=== PATIENT | male | born 1965 | race African-American/Black ===

== ENCOUNTER 2017-10-01 02:26 | Emergency (ER) | payer MEDICAID ==
[~2017-10-01] VITALS: Ht 180.3 cm; Wt 93.0 kg
[~2017-10-01 02:26] MED LIST: DEPAKOTE; LITHIUM; RESPIRADOL
[2017-10-01 05:30] VITALS: BP 134/95
== END 2017-10-01 05:50 | disposition left against medical advice (07) ==
LOC: ER 02:26
DX: R50.9 Fever, unspecified (principal); Z53.21 Procedure and treatment not carried out due to patient leaving prior to being seen by health care provider

== ENCOUNTER 2017-10-02 22:09 | Emergency (ER) | payer MEDICAID ==
[~2017-10-02] VITALS: Ht 180.3 cm; Wt 93.0 kg
[2017-10-02 23:04] VITALS: BP 142/83
== END 2017-10-03 04:45 | disposition left against medical advice (07) ==
LOC: ER 22:09
DX: R50.9 Fever, unspecified (principal); Z53.21 Procedure and treatment not carried out due to patient leaving prior to being seen by health care provider

== ENCOUNTER 2017-11-04 14:34 | Emergency (ER) | payer MEDICAID | END 2017-11-04 15:42 | disposition left against medical advice (07) | LOC: ER 15:10 | DX: M79.89 Other specified soft tissue disorders (principal); Z53.21 Procedure and treatment not carried out due to patient leaving prior to being seen by health care provider ==

== ENCOUNTER 2017-11-07 20:56 | Emergency (ER) | payer MEDICAID ==
[~2017-11-07] VITALS: Ht 177.8 cm; Wt 107.0 kg
[2017-11-07 21:28] VITALS: BP 118/81
== END 2017-11-08 01:00 | disposition left against medical advice (07) ==
LOC: ER 20:56
DX: R50.9 Fever, unspecified (principal); Z53.21 Procedure and treatment not carried out due to patient leaving prior to being seen by health care provider

== ENCOUNTER 2017-11-15 01:58 | Emergency (ER) | payer MEDICAID ==
[~2017-11-15] VITALS: Ht 177.8 cm; Wt 93.0 kg
[2017-11-15 02:20] VITALS: BP 126/82
== END 2017-11-15 08:06 | disposition left against medical advice (07) ==
LOC: ER 01:58
DX: Z53.21 Procedure and treatment not carried out due to patient leaving prior to being seen by health care provider (principal); F17.200 Nicotine dependence, unspecified, uncomplicated; F12.10 Cannabis abuse, uncomplicated

== ENCOUNTER 2018-05-27 02:08 | Emergency (ER) | payer MEDICAID ==
[~2018-05-27] VITALS: Ht 177.8 cm; Wt 93.0 kg
[2018-05-27 02:33] VITALS: BP 121/80
== END 2018-05-27 06:08 | disposition left against medical advice (07) ==
LOC: ER 02:08
DX: Z53.21 Procedure and treatment not carried out due to patient leaving prior to being seen by health care provider (principal)

== ENCOUNTER 2018-05-31 06:01 | Emergency (ER) | payer MEDICAID ==
[~2018-05-31] VITALS: Ht 180.3 cm; Wt 95.0 kg
[2018-05-31 08:37] VITALS: BP 121/83
== END 2018-05-31 08:37 | disposition home or self-care (01) ==
LOC: ER 06:01
DX: J06.9 Acute upper respiratory infection, unspecified (principal); B86 Scabies; F20.9 Schizophrenia, unspecified; F43.10 Post-traumatic stress disorder, unspecified; F12.10 Cannabis abuse, uncomplicated; F17.200 Nicotine dependence, unspecified, uncomplicated; Z96.659 Presence of unspecified artificial knee joint
CPT/HCPCS: 71045; 99283

== ENCOUNTER 2018-06-08 01:23 | Emergency (ER) | payer MEDICAID ==
[~2018-06-08] VITALS: Ht 177.8 cm; Wt 97.0 kg
[2018-06-08 01:37] VITALS: BP 121/77
== END 2018-06-08 03:21 | disposition left against medical advice (07) ==
LOC: ER 03:21
DX: R21 Rash and other nonspecific skin eruption (principal); R50.9 Fever, unspecified; Z53.21 Procedure and treatment not carried out due to patient leaving prior to being seen by health care provider

== ENCOUNTER 2018-06-10 01:18 | Emergency (ER) | payer MEDICAID ==
[~2018-06-10] VITALS: Ht 177.8 cm; Wt 98.0 kg
[2018-06-10 05:13] VITALS: BP 128/77
== END 2018-06-10 05:16 | disposition home or self-care (01) ==
LOC: ER 02:36
DX: R21 Rash and other nonspecific skin eruption (principal); F12.10 Cannabis abuse, uncomplicated; F17.200 Nicotine dependence, unspecified, uncomplicated; Z59.0 Homelessness; Z98.890 Other specified postprocedural states
CPT/HCPCS: 99282

== ENCOUNTER 2018-06-17 01:36 | Emergency (ER) | payer MEDICAID ==
[~2018-06-17] VITALS: Ht 177.8 cm; Wt 98.0 kg
[2018-06-17 02:08] VITALS: BP 117/75
== END 2018-06-17 04:40 | disposition left against medical advice (07) ==
LOC: ER 01:36
DX: Z53.21 Procedure and treatment not carried out due to patient leaving prior to being seen by health care provider (principal)

== ENCOUNTER 2018-06-20 22:51 | Emergency (ER) | payer MEDICAID | END 2018-06-21 02:21 | disposition left against medical advice (07) | LOC: ER 22:51 | DX: Z53.21 Procedure and treatment not carried out due to patient leaving prior to being seen by health care provider (principal) ==

== ENCOUNTER 2018-06-22 13:07 | Emergency (ER) | payer MEDICAID | END 2018-06-22 14:31 | disposition left against medical advice (07) | LOC: ER 13:07 | DX: R68.89 Other general symptoms and signs (principal); Z53.21 Procedure and treatment not carried out due to patient leaving prior to being seen by health care provider ==

== ENCOUNTER 2018-07-10 09:22 | Emergency (ER) | payer MEDICAID ==
[~2018-07-10] VITALS: Ht 177.8 cm; Wt 93.0 kg
[2018-07-10 11:51] LABS: BASOPHILS % 0.5 % (0.0-2.0); EOSINOPHILS % 1.2 % (0.0-5.0); HEMOGLOBIN. 12.9 g/dL (14.0-18.0); LYMPHOCYTES % 18.5 % (20.0-50.0); MEAN CORPUSCULAR HEMOGLOBIN 25.8 pg (28.0-32.0); MEAN CORPUSCULAR VOLUME 79.9 fL (80.0-94.0); MEAN PLATELET VOLUME 7.8 fl (7.4-10.4); MONOCYTES % 8.6 % (2.0-8.0); NEUTROPHILS % 71.2 % (40.0-76.0); PLATELET 335 x1000/uL (130-400); RED BLOOD CELL COUNT 5.01 mill/uL (4.7-6.1); RED CELL DISTRIBUTION WIDTH 16.4 % (11.6-14.6)
[2018-07-10 11:55] LABS: CHLORIDE 103 mEq/L (98-107)
[2018-07-10 13:00] VITALS: BP 110/70
== END 2018-07-10 13:29 | disposition home or self-care (01) ==
LOC: ER 09:22
DX: R60.0 Localized edema (principal)
CPT/HCPCS: 36415; 71045; 80053; 83880; 84484; 85025; 93005; 93970; 99285; Z7610

== ENCOUNTER 2018-07-15 20:11 | Emergency (ER) | payer MEDICAID ==
[~2018-07-15] VITALS: Ht 177.8 cm; Wt 98.0 kg
[2018-07-15 20:22] VITALS: BP 113/70
== END 2018-07-16 00:38 | disposition left against medical advice (07) ==
LOC: ER 22:07
DX: Z53.21 Procedure and treatment not carried out due to patient leaving prior to being seen by health care provider (principal)

== ENCOUNTER 2018-07-18 16:18 | Emergency (ER) | payer MEDICAID | END 2018-07-18 17:12 | disposition left against medical advice (07) | LOC: ER 16:54 | DX: R50.9 Fever, unspecified (principal); Z53.21 Procedure and treatment not carried out due to patient leaving prior to being seen by health care provider ==

== ENCOUNTER 2018-07-20 19:57 | Emergency (ER) | payer MEDICAID ==
[~2018-07-20] VITALS: Ht 177.8 cm; Wt 98.0 kg
[2018-07-20 20:02] VITALS: BP 126/65
== END 2018-07-20 22:05 | disposition left against medical advice (07) ==
LOC: ER 21:50
DX: M79.89 Other specified soft tissue disorders (principal); B38.0 Acute pulmonary coccidioidomycosis; Z53.21 Procedure and treatment not carried out due to patient leaving prior to being seen by health care provider

== ENCOUNTER 2018-10-02 01:54 | Emergency (ER) | payer MEDICAID ==
[~2018-10-02] VITALS: Ht 177.8 cm; Wt 91.0 kg
[2018-10-02] MEDS ORDERED: SODIUM CHLORIDE 0.9% 1,000 ML IV ONE (03:06)
[2018-10-02 03:36] LABS: BASOPHILS % 0.5 % (0.0-2.0); EOSINOPHILS % 2.6 % (0.0-5.0); HEMATOCRIT. 38.4 % (42.0-52.0); HEMOGLOBIN. 12.3 g/dL (14.0-18.0); LYMPHOCYTES % 20.6 % (20.0-50.0); MEAN CORPUSCULAR HEMOGLOBIN 25.7 pg (28.0-32.0); MEAN CORPUSCULAR VOLUME 79.9 fL (80.0-94.0); MEAN PLATELET VOLUME 8.8 fl (7.4-10.4); MONOCYTES % 10.7 % (2.0-8.0); NEUTROPHILS % 65.6 % (40.0-76.0); PLATELET 251 x1000/uL (130-400)
[2018-10-02 03:40] LABS: CHLORIDE 103 mEq/L (98-107)
[2018-10-02] MEDS ORDERED: POTASSIUM CHLORIDE 20MEQ TABLET SR PO ONE (05:30)
[2018-10-02 06:17] VITALS: BP 110/50
[2018-10-02] MEDS: POTASSIUM CHLORIDE 20MEQ TABLET SR PO NR ×2 (06:17→06:25)
== END 2018-10-02 06:27 | disposition home or self-care (01) ==
LOC: ER 01:54
DX: R21 Rash and other nonspecific skin eruption (principal); M79.89 Other specified soft tissue disorders; R03.0 Elevated blood-pressure reading, without diagnosis of hypertension
CPT/HCPCS: 36415; 71045; 80053; 85025; 93005; 93970; 99284; J7030

== ENCOUNTER 2018-11-24 00:14 | Emergency (ER) | payer MEDICAID, OTHER ==
[~2018-11-24] VITALS: Ht 177.8 cm; Wt 93.0 kg
[2018-11-24 00:26] VITALS: BP 137/78
== END 2018-11-24 03:30 | disposition left against medical advice (07) ==
LOC: ER 00:14
DX: Z53.21 Procedure and treatment not carried out due to patient leaving prior to being seen by health care provider (principal)

== ENCOUNTER 2018-11-26 00:01 | Emergency (ER) | payer OTHER | END 2018-11-26 01:39 | disposition left against medical advice (07) | LOC: ER 00:01 | DX: R21 Rash and other nonspecific skin eruption (principal); Z53.21 Procedure and treatment not carried out due to patient leaving prior to being seen by health care provider ==

== ENCOUNTER 2018-11-26 21:31 | Emergency (ER) | payer OTHER ==
[~2018-11-26] VITALS: Ht 177.8 cm; Wt 93.0 kg
[2018-11-26 22:24] VITALS: BP 109/66
== END 2018-11-27 01:00 | disposition left against medical advice (07) ==
LOC: ER 21:31
DX: Z53.21 Procedure and treatment not carried out due to patient leaving prior to being seen by health care provider (principal)

== ENCOUNTER 2018-11-28 02:23 | Emergency (ER) | payer OTHER ==
[~2018-11-28] VITALS: Ht 177.8 cm; Wt 91.0 kg
[2018-11-28 02:44] VITALS: BP 112/73
== END 2018-11-28 08:02 | disposition left against medical advice (07) ==
LOC: ER 02:23
DX: R10.9 Unspecified abdominal pain (principal); Z53.21 Procedure and treatment not carried out due to patient leaving prior to being seen by health care provider

== ENCOUNTER 2018-11-28 14:27 | Emergency (ER) | payer OTHER ==
[~2018-11-28] VITALS: Ht 177.8 cm; Wt 91.0 kg
[2018-11-28 14:48] VITALS: BP 102/65
== END 2018-11-28 22:30 | disposition left against medical advice (07) ==
LOC: ER 14:27
DX: R50.9 Fever, unspecified (principal); R21 Rash and other nonspecific skin eruption; Z53.21 Procedure and treatment not carried out due to patient leaving prior to being seen by health care provider

== ENCOUNTER 2018-11-29 01:00 | Emergency (ER) | payer OTHER ==
[~2018-11-29] VITALS: Ht 177.8 cm; Wt 93.0 kg
[2018-11-29 01:09] VITALS: BP 122/78
== END 2018-11-29 08:28 | disposition left against medical advice (07) ==
LOC: ER 01:00
DX: R21 Rash and other nonspecific skin eruption (principal); Z53.21 Procedure and treatment not carried out due to patient leaving prior to being seen by health care provider

== ENCOUNTER 2018-11-29 20:38 | Emergency (ER) | payer OTHER ==
[~2018-11-29] VITALS: Ht 167.6 cm; Wt 92.0 kg
[2018-11-29 21:23] VITALS: BP 115/76
== END 2018-11-30 02:19 | disposition home or self-care (01) ==
LOC: ER 20:38
DX: M79.605 Pain in left leg (principal); M79.604 Pain in right leg; F12.10 Cannabis abuse, uncomplicated; F14.10 Cocaine abuse, uncomplicated; F17.200 Nicotine dependence, unspecified, uncomplicated
CPT/HCPCS: 99283

== ENCOUNTER 2018-11-30 21:25 | Emergency (ER) | payer MEDICAID, OTHER | END 2018-11-30 23:36 | disposition left against medical advice (07) | LOC: ER 21:25 | DX: B38.0 Acute pulmonary coccidioidomycosis (principal); Z53.21 Procedure and treatment not carried out due to patient leaving prior to being seen by health care provider ==

== ENCOUNTER 2018-12-03 00:54 | Emergency (ER) | payer MEDICAID ==
[~2018-12-03] VITALS: Ht 167.6 cm; Wt 92.0 kg
[2018-12-03 03:32] VITALS: BP 118/67
== END 2018-12-03 05:03 | disposition left against medical advice (07) ==
LOC: ER 00:54
DX: R21 Rash and other nonspecific skin eruption (principal); Z53.21 Procedure and treatment not carried out due to patient leaving prior to being seen by health care provider

== ENCOUNTER 2018-12-03 20:17 | Emergency (ER) | payer MEDICAID, OTHER ==
[~2018-12-03] VITALS: Ht 167.6 cm; Wt 92.0 kg
[2018-12-03 20:57] VITALS: BP 127/59
== END 2018-12-04 00:09 | disposition left against medical advice (07) ==
LOC: ER 20:17
DX: Z53.21 Procedure and treatment not carried out due to patient leaving prior to being seen by health care provider (principal)

== ENCOUNTER 2018-12-04 22:24 | Emergency (ER) | payer OTHER | END 2018-12-05 00:17 | disposition left against medical advice (07) | LOC: ER 22:24 | DX: R50.9 Fever, unspecified (principal); Z53.21 Procedure and treatment not carried out due to patient leaving prior to being seen by health care provider ==

== ENCOUNTER 2018-12-05 22:53 | Emergency (ER) | payer OTHER ==
[~2018-12-05] VITALS: Ht 177.8 cm; Wt 90.0 kg
[2018-12-06 00:06] VITALS: BP 122/79
== END 2018-12-06 05:00 | disposition left against medical advice (07) ==
LOC: ER 22:53
DX: Z53.21 Procedure and treatment not carried out due to patient leaving prior to being seen by health care provider (principal)

== ENCOUNTER 2018-12-06 22:15 | Emergency (ER) | payer OTHER ==
[~2018-12-06] VITALS: Ht 177.8 cm; Wt 100.0 kg
[2018-12-06 22:39] VITALS: BP 131/62
== END 2018-12-07 00:05 | disposition left against medical advice (07) ==
LOC: ER 22:15
DX: R21 Rash and other nonspecific skin eruption (principal); Z53.21 Procedure and treatment not carried out due to patient leaving prior to being seen by health care provider

== ENCOUNTER 2018-12-08 02:25 | Emergency (ER) | payer OTHER ==
[~2018-12-08] VITALS: Ht 177.8 cm; Wt 98.0 kg
[2018-12-08 05:29] VITALS: BP 132/88
== END 2018-12-08 06:29 | disposition left against medical advice (07) ==
LOC: ER 02:25
DX: Z53.21 Procedure and treatment not carried out due to patient leaving prior to being seen by health care provider (principal)

== ENCOUNTER 2018-12-08 19:40 | Emergency (ER) | payer OTHER ==
[2018-12-08 21:56] VITALS: BP 188/98
== END 2018-12-08 22:01 | disposition left against medical advice (07) ==
LOC: ER 19:40
DX: Z53.21 Procedure and treatment not carried out due to patient leaving prior to being seen by health care provider (principal)

== ENCOUNTER 2018-12-10 21:41 | Emergency (ER) | payer MEDICAID, OTHER ==
[~2018-12-10] VITALS: Ht 180.3 cm; Wt 93.0 kg
[2018-12-11 01:01] VITALS: BP 152/85
== END 2018-12-11 02:40 | disposition left against medical advice (07) ==
LOC: ER 22:11
DX: Z53.21 Procedure and treatment not carried out due to patient leaving prior to being seen by health care provider (principal)
CPT/HCPCS: 93005; 99281

== ENCOUNTER 2018-12-11 21:08 | Emergency (ER) | payer MEDICAID ==
[~2018-12-11] VITALS: Ht 177.8 cm; Wt 82.0 kg
[2018-12-11 21:15] VITALS: BP 115/59
== END 2018-12-11 22:20 | disposition left against medical advice (07) ==
LOC: ER 21:08
DX: Z53.21 Procedure and treatment not carried out due to patient leaving prior to being seen by health care provider (principal)

== ENCOUNTER 2018-12-12 01:44 | Emergency (ER) | payer MEDICAID, OTHER ==
[~2018-12-12] VITALS: Ht 180.3 cm; Wt 78.0 kg
[2018-12-12 06:00] VITALS: BP 140/78
== END 2018-12-12 08:20 | disposition left against medical advice (07) ==
LOC: ER 03:31
DX: R50.9 Fever, unspecified (principal); Z53.21 Procedure and treatment not carried out due to patient leaving prior to being seen by health care provider

== ENCOUNTER 2018-12-14 05:38 | Emergency (ER) | payer OTHER ==
[~2018-12-14] VITALS: Ht 180.3 cm; Wt 93.0 kg
[2018-12-14 05:51] VITALS: BP 105/72
== END 2018-12-14 08:38 | disposition left against medical advice (07) ==
LOC: ER 05:38
DX: R21 Rash and other nonspecific skin eruption (principal); Z53.21 Procedure and treatment not carried out due to patient leaving prior to being seen by health care provider

== ENCOUNTER 2018-12-18 19:49 | Emergency (ER) | payer OTHER ==
[~2018-12-18] VITALS: Ht 177.8 cm; Wt 88.0 kg
[2018-12-18 22:42] VITALS: BP 121/84
== END 2018-12-19 00:28 | disposition home or self-care (01) ==
LOC: ER 19:49
DX: R21 Rash and other nonspecific skin eruption (principal); F17.200 Nicotine dependence, unspecified, uncomplicated; F12.10 Cannabis abuse, uncomplicated; Z98.890 Other specified postprocedural states
CPT/HCPCS: 99281

== ENCOUNTER 2018-12-20 01:24 | Emergency (ER) | payer OTHER ==
[~2018-12-20] VITALS: Ht 177.8 cm; Wt 87.0 kg
[2018-12-20 01:26] VITALS: BP 129/82
== END 2018-12-20 04:12 | disposition left against medical advice (07) ==
LOC: ER 01:24
DX: R21 Rash and other nonspecific skin eruption (principal); Z53.21 Procedure and treatment not carried out due to patient leaving prior to being seen by health care provider

== ENCOUNTER 2021-07-22 00:17 | Emergency (ER) | payer OTHER ==
[~2021-07-22] VITALS: Ht 177.8 cm; Wt 99.0 kg
[2021-07-22 00:22] VITALS: BP 145/93
== END 2021-07-22 01:19 | disposition left against medical advice (07) ==
LOC: ER 00:17
DX: Z53.21 Procedure and treatment not carried out due to patient leaving prior to being seen by health care provider (principal)

== ENCOUNTER 2021-07-26 21:16 | Emergency (ER) | payer OTHER | END 2021-07-26 23:21 | disposition left against medical advice (07) | LOC: ER 21:16 | DX: Z53.21 Procedure and treatment not carried out due to patient leaving prior to being seen by health care provider (principal) ==

== ENCOUNTER 2021-08-05 20:42 | Emergency (ER) | payer OTHER ==
[~2021-08-05] VITALS: Ht 172.7 cm; Wt 75.0 kg
[2021-08-05 23:07] LABS: HEMATOCRIT. 33.3 % (42.0-52.0); HEMOGLOBIN. 11.1 g/dL (14.0-18.0); MEAN CORPUSCULAR HEMOGLOBIN 27.1 pg (28.0-32.0); MEAN CORPUSCULAR VOLUME 81.3 fL (80.0-94.0); MEAN PLATELET VOLUME 7.5 fl (7.4-10.4); PLATELET 429 x1000/uL (130-400); RED CELL DISTRIBUTION WIDTH 15.8 % (11.6-14.6)
[2021-08-05 23:12] LABS: CHLORIDE 96 mEq/L (98-107)
[2021-08-05 23:17] LABS: PLATELET ESTIMATE INCREASED
[2021-08-06] MEDS ORDERED: AZITHROMYCIN 500MG/250ML 250 ML IV NR (02:00)
[2021-08-06] MEDS ORDERED: CEFTRIAXONE 1 G PREMIX 50 ML IV NR (02:00)
[2021-08-06 08:00] VITALS: BP 132/69
== END 2021-08-06 08:29 | disposition short-term general hospital (02) ==
LOC: ER 20:42
DX: J18.9 Pneumonia, unspecified organism (principal); R55 Syncope and collapse; R53.83 Other fatigue; R53.1 Weakness; R60.0 Localized edema; E11.9 Type 2 diabetes mellitus without complications; Z87.891 Personal history of nicotine dependence; Z79.899 Other long term (current) drug therapy; Z20.822 Contact with and (suspected) exposure to COVID-19
CPT/HCPCS: 36415; 71045; 80053; 83605; 83880; 84484; 85025; 87040; 87426; 93005; 96365; 96368; 99285; J0456; J0696

== ENCOUNTER 2022-01-18 09:13 | Emergency (ER) | payer MEDICAID, OTHER ==
[~2022-01-18] VITALS: Ht 177.8 cm; Wt 93.0 kg
[2022-01-18 09:40] VITALS: BP 118/78
== END 2022-01-18 14:36 | disposition left against medical advice (07) ==
LOC: ER 09:52
DX: Z53.21 Procedure and treatment not carried out due to patient leaving prior to being seen by health care provider (principal)

== ENCOUNTER 2022-01-29 07:32 | Emergency (ER) | payer MEDICAID ==
[~2022-01-29] VITALS: Ht 177.8 cm; Wt 92.0 kg
[2022-01-29 07:34] VITALS: BP 132/79
== END 2022-01-29 08:34 | disposition left against medical advice (07) ==
LOC: ER 07:32
DX: Z53.21 Procedure and treatment not carried out due to patient leaving prior to being seen by health care provider (principal)

== ENCOUNTER 2022-02-04 04:37 | Emergency (ER) | payer MEDICAID ==
[~2022-02-04] VITALS: Ht 177.8 cm; Wt 94.8 kg
[2022-02-04 04:49] VITALS: BP 141/80
== END 2022-02-04 05:49 | disposition left against medical advice (07) ==
LOC: ER 04:37
DX: R05.9 Cough, unspecified (principal); F17.290 Nicotine dependence, other tobacco product, uncomplicated
CPT/HCPCS: 99281; 99406

== ENCOUNTER 2022-02-12 19:08 | Emergency (ER) | payer MEDICAID ==
[~2022-02-12] VITALS: Ht 177.8 cm; Wt 95.0 kg
[2022-02-12 19:20] VITALS: BP 127/43
== END 2022-02-12 21:30 | disposition left against medical advice (07) ==
LOC: ER 19:08
DX: Z53.21 Procedure and treatment not carried out due to patient leaving prior to being seen by health care provider (principal)

== ENCOUNTER 2022-02-17 22:28 | Emergency (ER) | payer MEDICAID ==
[~2022-02-17] VITALS: Ht 172.7 cm; Wt 93.5 kg
[2022-02-17 23:21] VITALS: BP 140/83
== END 2022-02-18 00:50 | disposition left against medical advice (07) ==
LOC: ER 22:28
DX: Z53.21 Procedure and treatment not carried out due to patient leaving prior to being seen by health care provider (principal)

== ENCOUNTER 2022-03-05 03:52 | Emergency (ER) | payer MEDICAID | END 2022-03-05 03:59 | disposition left against medical advice (07) | LOC: ER 03:52 | DX: Z53.21 Procedure and treatment not carried out due to patient leaving prior to being seen by health care provider (principal) ==

== ENCOUNTER 2022-03-10 23:56 | Emergency (ER) | payer MEDICAID ==
[2022-03-14] MEDS ORDERED: CLOT15CR27 TP (01:27)
== END 2022-03-11 00:46 | disposition left against medical advice (07) ==
LOC: ER 23:56
DX: Z53.21 Procedure and treatment not carried out due to patient leaving prior to being seen by health care provider (principal)

== ENCOUNTER 2022-07-17 00:07 | Emergency (ER) | payer MEDICAID ==
[~2022-07-17] VITALS: Ht 180.3 cm; Wt 101.3 kg
[~2022-07-17 00:07] MED LIST changes: +CLOT15CR27 TP
[2022-07-17 00:15] VITALS: BP 113/68
[2022-07-17 03:21] LABS: BASOPHILS % 0.6 % (0.0-2.0); EOSINOPHILS % 0.1 % (0.0-5.0); HEMATOCRIT. 38.7 % (42.0-52.0); HEMOGLOBIN. 12.6 g/dL (14.0-18.0); LYMPHOCYTES % 21.8 % (20.0-50.0); MEAN CORPUSCULAR HEMOGLOBIN 26.4 pg (28.0-32.0); MEAN PLATELET VOLUME 8.5 fl (7.4-10.4); MONOCYTES % 11.4 % (2.0-8.0); NEUTROPHILS % 66.1 % (40.0-76.0); PLATELET 199 x1000/uL (130-400); RED BLOOD CELL COUNT 4.78 mill/uL (4.7-6.1); RED CELL DISTRIBUTION WIDTH 17.4 % (11.6-14.6)
[2022-07-17 03:25] LABS: CHLORIDE 103 mEq/L (98-107)
[2022-07-17] MEDS ORDERED: FURO-152 MT (04:30)
== END 2022-07-17 04:58 | disposition home or self-care (01) ==
LOC: ER 00:07
DX: R60.0 Localized edema (principal); R05.9 Cough, unspecified
CPT/HCPCS: 36415; 71045; 80053; 83880; 85025; 99284

== ENCOUNTER 2022-09-08 23:39 | Emergency (ER) | payer MEDICAID ==
[~2022-09-08 23:39] MED LIST changes: +FURO-152 MT
== END 2022-09-09 00:59 | disposition left against medical advice (07) ==
LOC: ER 23:39
DX: Z53.21 Procedure and treatment not carried out due to patient leaving prior to being seen by health care provider (principal)

== ENCOUNTER 2022-11-30 13:44 | Emergency (ER) | payer MEDICAID ==
[~2022-11-30] VITALS: Ht 177.8 cm; Wt 98.0 kg
[2022-11-30 13:54] VITALS: BP 155/97
[2022-11-30 20:02] LABS: CLARITY URINE CLEAR (CLEAR); COLOR URINE YELLOW (YELLOW); KETONES URINE TRACE (NEGATIVE); LEUKOCYTE ESTERASE URINE NEGATIVE (NEGATIVE); NITRITE URINE NEGATIVE (NEGATIVE); OCCULT BLOOD URINE NEGATIVE (NEGATIVE); PROTEIN URINE NEGATIVE (NEGATIVE); SPECIFIC GRAVITY URINE 1.023 (1.005-1.030)
[2022-11-30] MEDS ORDERED: SULF1TAB48 MT (20:10)
== END 2022-11-30 20:20 | disposition home or self-care (01) ==
LOC: ER 13:44
DX: L02.214 Cutaneous abscess of groin (principal); Z79.899 Other long term (current) drug therapy
CPT/HCPCS: 81003; 99283; Z7610

== ENCOUNTER 2023-01-25 23:27 | Emergency (ER) | payer MEDICAID ==
[~2023-01-25] VITALS: Ht 177.8 cm; Wt 105.0 kg
[~2023-01-25 23:27] MED LIST changes: +SULF1TAB48 MT
[2023-01-25 23:32] VITALS: BP 138/69
[2023-01-27] MEDS ORDERED: HYDR453.3 TP (06:45)
== END 2023-01-26 02:05 | disposition left against medical advice (07) ==
LOC: ER 01-26 00:02
DX: R21 Rash and other nonspecific skin eruption (principal); Z53.21 Procedure and treatment not carried out due to patient leaving prior to being seen by health care provider
CPT/HCPCS: 99281

== ENCOUNTER 2023-01-27 04:34 | Emergency (ER) | payer MEDICAID ==
[~2023-01-27] VITALS: Ht 179.1 cm; Wt 93.0 kg
[2023-01-27 04:46] VITALS: BP 125/72
[2023-01-27] MEDS ORDERED: HYDR453.3 TP (06:45)
== END 2023-01-27 07:25 | disposition home or self-care (01) ==
LOC: ER 04:34
DX: L73.9 Follicular disorder, unspecified (principal)
CPT/HCPCS: 99281

== ENCOUNTER 2023-01-28 02:35 | Emergency (ER) | payer MEDICAID ==
[~2023-01-28 02:35] MED LIST changes: +HYDR453.3 TP
== END 2023-01-28 03:01 | disposition left against medical advice (07) ==
LOC: ER 02:35
DX: Z53.21 Procedure and treatment not carried out due to patient leaving prior to being seen by health care provider (principal)
CPT/HCPCS: 99281